=== PATIENT | male | born 1950 ===

== ENCOUNTER 2017-07-26 14:14 | Emergency (ER) | payer OTHER ==
[2017-07-26 14:27] VITALS: BP 178/82; PULSE 64; RESP 16; TEMP 98.1; O2SAT 97
--- NOTE | 2017-07-26 14:46 | C.PDOC ---
History Of Present Illness R EYE REDNESS, DC X SEV DAYS. NO TRAUMA, FB SENSATION, VISION CHANGE. EXAM NAD HEENT +R CONJUNCTIVITIS W WATERY DC. NO PERIROB REDNESS, SWELLING. PERRLA EOMI REMIANDER NEG Time Seen by Provider: 07/26/17 14:32 Chief Complaint (Nursing): Eye Problem History Per: Patient History/Exam Limitations: no limitations Onset/Duration Of Symptoms: Days (Several days) Past Medical History Reviewed: Historical Data, Nursing Documentation, Vital Signs Vital Signs: Last Vital Signs Temp 98.1 F 07/26/17 14:24 Pulse 64 07/26/17 14:24 Resp 16 07/26/17 14:24 BP 178/82 H 07/26/17 14:24 Pulse Ox 97 07/26/17 14:46 - Medical History PMH: Diabetes, HTN Family History: States: No Known Family Hx - Social History Hx Alcohol Use: No Hx Substance Use: No - Immunization History Hx Tetanus Toxoid Vaccination: No Hx Influenza Vaccination: No Hx Pneumococcal Vaccination: No Review Of Systems Except As Marked, All Systems Reviewed And Found Negative. Constitutional: Negative for: Fever Eyes: Positive for: Redness (Right eye redness), Other ((+) Right eye discharge) . Negative for: Vision Change Gastrointestinal: Negative for: Nausea, Vomiting Musculoskeletal: Negative for: Neck Pain Neurological: Negative for: Headache Physical Exam - Physical Exam Appears: Non-toxic, No Acute Distress Skin: Warm, Dry, No Rash Head: Atraumatic, Normacephalic Eye(s): bilateral: PERRL, EOMI, right: Other (Conjunctivitis with watery discharge. No periorbital redness. No swelling.), left: Normal Inspection Ear(s): Bilateral: Normal Oral Mucosa: Moist Throat: Normal, No Erythema, No Exudate, No Drooling Extremity: Normal ROM, No Swelling Neurological/Psych: Oriented x3, Normal Speech, Normal Motor ED Course And Treatment O2 Sat by Pulse Oximetry: 97 (RA) Pulse Ox Interpretation: Normal Disposition Counseled Patient/Family Regarding: Diagnosis, Need For Followup, Rx Given - Disposition Referrals: YOUR,PMD [Other] Disposition: HOME/ ROUTINE Disposition Time: 14:44 Condition: GOOD Prescriptions: Polymyxin/Trimethoprim Sulfate [Polytrim Ophth Soln] 1 drop OD Q3H #1 bottle Instructions: Conjunctivitis (ED) Forms: [facility] ([place] Islander) Print Language: SAMMARINESE - Clinical Impression Clinical Impression: Conjunctivitis - Scribe Statement The provider has reviewed the documentation as recorded by the Joannaibyamileth Palomares Provider Attestation: All medical record entries made by the Joannaibyamileth were at my direction and personally dictated by me. I have reviewed the chart and agree that the record accurately reflects my personal performance of the history, physical exam, medical decision making, and the department course for this patient. I have also personally directed, reviewed, and agree with the discharge instructions and disposition.
== END 2017-07-26 15:10 | disposition home or self-care (01) ==
LOC: C.ER 14:14
DX: H10.9 Unspecified conjunctivitis (principal)

== ENCOUNTER 2019-01-01 20:07 | Emergency (ER) | payer OTHER ==
[2019-01-01 20:38] VITALS: BP 195/78; PULSE 63; RESP 20; TEMP 98.7; O2SAT 98
--- NOTE | 2019-01-01 22:39 | C.PDOC ---
History Of Present Illness 68 year old male fell at home 5 days ago twisting his left ankle now complains of pain and swelling to the ankle. Patient felt okay but states the ankle as not improved prompting visit. Denies weakness or numbness. Time Seen by Provider: 01/01/19 20:36 Chief Complaint (Nursing): Lower Extremity Problem/Injury History Per: Patient History/Exam Limitations: no limitations Onset/Duration Of Symptoms: Days (5) Current Symptoms Are (Timing): Still Present Recent travel outside of the [place]: No - Ankle/Foot Description Of Injury: Twisted Past Medical History Reviewed: Historical Data, Nursing Documentation, Vital Signs Vital Signs: Last Vital Signs Temp 98.7 F 01/01/19 20:30 Pulse 63 01/01/19 20:30 Resp 20 01/01/19 20:30 BP 195/78 H 01/01/19 20:30 Pulse Ox 98 01/01/19 20:30 Primary Care Provider: Magnolia Redd - Medical History PMH: Diabetes, HTN Family History: States: Unknown Family Hx - Social History Hx Alcohol Use: No Hx Substance Use: No - Immunization History Hx Tetanus Toxoid Vaccination: No Hx Influenza Vaccination: No Hx Pneumococcal Vaccination: No Review Of Systems Musculoskeletal: Positive for: Other (Left ankle pain) Neurological: Negative for: Weakness, Numbness Physical Exam - Physical Exam Appears: Non-toxic Skin: Warm Head: Atraumatic, Normacephalic Eye(s): bilateral: Normal Inspection Extremity: Normal ROM (x4), Capillary Refill (<2 seconds), No Deformity, Other (Ecchymosis to left foot, tenderness to left ankle) Pulses: Left Dorsalis Pedis: Normal, Right Dorsalis Pedis: Normal Neurological/Psych: Oriented x3, Normal Speech, Normal Motor, Normal Sensation ED Course And Treatment O2 Sat by Pulse Oximetry: 98 (Room air) Pulse Ox Interpretation: Normal - Other Rad Left ankle x-ray X-Ray: Interpreted by Me, Viewed By Me Interpretation: No acute fracture or dislocation Left foot x-ray X-Ray: Interpreted by Me, Viewed By Me Interpretation: No acute fracture or dislocation Progress Note: Left foot x-ray and ankle x-ray ordered, results were negative. Patient is resting comfortably in no acute distress, vitals are stable, he was placed in aircast, given crutches with instructions and advised to follow up with podiatry. Disposition - Disposition Referrals: Irina Hall DPM [Staff Provider] - Disposition: HOME/ ROUTINE Disposition Time: 22:37 Condition: STABLE Additional Instructions: Follow up with Control Integration Engineer within 1-2 days. Return to ED if feel worse. Prescriptions: Ibuprofen [Motrin Tab] 400 mg PO Q8 #30 tab Instructions: Ankle Sprain (DC) Forms: [employer] (Welsh), Work Excuse Print Language: DJIBOUTIAN - Clinical Impression Clinical Impression: Ankle sprain - PA / ELEMENTARY LIBRARIAN / Resident Statement MD/DO has reviewed & agrees with the documentation as recorded. - Scribe Statement The provider has reviewed the documentation as recorded by the Scribyamileth Castillo All medical record entries made by the Kena were at my direction and personally dictated by me. I have reviewed the chart and agree that the record accurately reflects my personal performance of the history, physical exam, medical decision making, and the department course for this patient. I have also personally directed, reviewed, and agree with the discharge instructions and disposition.
--- NOTE | 2019-01-02 10:24 | RAD ---
Date of service: 01/01/2019 PROCEDURE: Left Ankle Radiographs. HISTORY: fall COMPARISON: None available. TECHNIQUE: 3 views obtained. FINDINGS: BONES: No fracture. Plantar calcaneal spur. JOINTS: Normal. No osteoarthritis. Ankle mortise maintained. Talar dome intact SOFT TISSUES: Normal. OTHER FINDINGS: None. IMPRESSION: No acute fracture.
--- NOTE | 2019-01-02 10:28 | RAD ---
Date of service: 01/01/2019 PROCEDURE: Left Foot Radiographs. HISTORY: fall COMPARISON: None. TECHNIQUE: 3 views obtained. FINDINGS: BONES: No fracture. Plantar calcaneal spur. JOINTS: Normal. SOFT TISSUES: Normal. OTHER FINDINGS: None. IMPRESSION: No acute fracture.
== END 2019-01-01 22:47 | disposition home or self-care (01) ==
LOC: C.ER 20:07
DX: S93.402A Sprain of unspecified ligament of left ankle, initial encounter (principal); W18.30XA Fall on same level, unspecified, initial encounter; Y92.009 Unspecified place in unspecified non-institutional (private) residence as the place of occurrence of the external cause